=== PATIENT | female | born 1980 | race Caucasian/White ===

== ENCOUNTER 2016-12-26 19:06 | Emergency (ER) | payer MEDICAID, OTHER ==
[2016-12-26 19:07] VITALS: BMI 25.2
[2016-12-26 19:30] VITALS: BP 150/90; PULSE 90; RESP 16; TEMP 98.2; O2SAT 100
--- NOTE | 2016-12-26 21:36 | ED PDOC ---
HPI: General Adult Time Seen by Provider: 12/26/16 20:11 Chief Complaint (Nursing): Groin Pain Chief Complaint (Provider): Bilateral groin pain x 3 months History Per: Patient History/Exam Limitations: no limitations Onset/Duration Of Symptoms: Days Have you had recent travel within the past 21 days to any of the following countries: [place], [place], [place] or [place]?: No Current Symptoms Are (Timing): Still Present Additional Complaint(s): Pt reports burning in bilateral groins x 3 months. Pt states she feels like it is both the skin and deeper. Pt denies vaginal discharge. Denies fever/chills. Denies trauma. Pt states has no N/V/D. PT reports being a runner. PT states she was seen by [facility] (Dr. Moreland) when it first began for yearly check -up and pap smear. Pt states all her results were negative. Pt states she than saw Dr. James who also did a pevlic exam and states everything on exam was normal and maybe it was a contact dermatitis. PT denies change in lotion, detergent, etc and states she does not have a rash. PT states she returned to Dr. Moreland and and US was completed which showed a uterine polyp. Pt states she was given a 7 days course of flagyl which she completed today. Pt states she has no change in symptoms. Past Medical History Reviewed: Historical Data, Nursing Documentation, Vital Signs Vital Signs: Last Vital Signs Temp 98.2 F 12/26/16 19:27 Pulse 90 12/26/16 19:27 Resp 16 12/26/16 19:27 BP 150/90 12/26/16 19:27 Pulse Ox 100 12/26/16 19:27 - Medical History PMH: Gastritis, HTN Denies: Depression, Chronic Kidney Disease - Surgical History Surgical History: No Surg Hx - Family History Family History: States: No Known Family Hx - Living Arrangements Living Arrangements: Other (Significant other away for ) - Social History Current smoker - smoking cessation education provided: No Alcohol: None Drugs: Denies - Home Medications Home Medications: Ambulatory Orders Medication Instructions Recorded Azithromycin [Zithromax] 250 mg PO DAILY #4 cap 05/06/14 Pantoprazole [Protonix] 40 mg PO DAILY #14 ect 05/06/14 Tramadol HCl [Ultram] 50 mg PO QID #12 tab 05/06/14 Sucralfate [Carafate] 1 gm PO DAILY #20 tablet 04/09/16 Omeprazole 40 mg PO DAILY #20 capsule. 04/10/16 traMADol [Ultram] 50 mg PO Q6H PRN #20 tab 12/26/16 - Allergies Allergies/Adverse Reactions: Allergies Allergy/AdvReac Type Severity Reaction Status Date / Time No Known Allergies Allergy Verified 10/06/11 18:52 Review of Systems ROS Statement: Except As Marked, All Systems Reviewed And Found Negative Constitutional: Negative for: Fever, Chills Cardiovascular: Negative for: Chest Pain Respiratory: Negative for: Cough Skin: Positive for: Other (Burning ) Physical Exam - Reviewed Nursing Documentation Reviewed: Yes Vital Signs Reviewed: Yes - Physical Exam Appears: Positive for: Well, Non-toxic, No Acute Distress Head Exam: Positive for: ATRAUMATIC, NORMAL INSPECTION, NORMOCEPHALIC Skin: Positive for: Normal Color (No rash on the groin or external genitals ), Warm Eye Exam: Positive for: Normal appearance ENT: Positive for: Normal ENT Inspection Neck: Positive for: Normal, Painless ROM Cardiovascular/Chest: Positive for: Regular Rate, Rhythm Respiratory: Positive for: Normal Breath Sounds. Negative for: Accessory Muscle Use, Respiratory Distress Back: Positive for: Normal Inspection Extremity: Positive for: Normal ROM. Negative for: Tenderness Neurologic/Psych: Positive for: Alert, Oriented - ECG O2 Sat by Pulse Oximetry: 100 Medical Decision Making Medical Decision Making: Pelvic x-ray normal. Urine preg (-) and urine normal. Disposition - Clinical Impression Clinical Impression: Bilateral groin pain - Patient ED Disposition Is Patient to be Admitted: No Counseled Patient/Family Regarding: Diagnosis, Need For Followup, Rx Given - Disposition Referrals: [facility] [Outside] [facility] [Outside] Disposition: Routine/Home Disposition Time: 21:31 Condition: GOOD Prescriptions: traMADol [Ultram] 50 mg PO Q6H PRN #20 tab PRN Reason: Pain Instructions: Pelvic Pain in Women (ED) Forms: [employer] ([place])
--- NOTE | 2016-12-27 11:59 | RAD ---
PROCEDURE: Radiographs of the pelvis. HISTORY: pelvic pain, bilateral groin area COMPARISON: None. FINDINGS: BONES: Pelvic Bones: Unremarkable. Hips: Grossly unremarkable. JOINTS: Sacroiliac Joints: Unremarkable. Pubic Symphysis: Unremarkable. OTHER FINDINGS: None. IMPRESSION: Unremarkable radiographs of the pelvis.
== END 2016-12-26 21:43 | disposition home or self-care (01) ==
LOC: H.ER 19:06
DX: R10.2 Pelvic and perineal pain (principal); N84.0 Polyp of corpus uteri; I10 Essential (primary) hypertension

== ENCOUNTER 2017-05-06 06:27 | Day surgery (SDC) | payer OTHER ==
[2017-05-02 11:58] VITALS: BMI 25.0
[2017-05-06 07:19] VITALS: RESP 18
[2017-05-06] MEDS ORDERED: Propofol 10 mg/ml Inj (20 ML) ONE (07:49)
[2017-05-06] MEDS ORDERED: Midazolam 2 MG/2 ML VIAL ONE (07:49)
--- NOTE | 2017-05-06 08:11 | CP.PCM.HP ---
History of Present Illness - History of Present Illness History of Present Illness: 36yo female with endometrial polyp diagnosed by pelvic ultrasound. Discussed options including expectant management and surgical treatment. Pt opting for surgical treatment. Discussed with patient the R/B/A of D&C, hysteroscopy, polypectomy. All patient questions answered. Pt consented for procedure. Present on Admission - Present on Admission Any Indicators Present on Admission: No History of DVT/PE: No History of Uncontrolled Diabetes: No Urinary Catheter: No Decubitus Ulcer Present: No Past Patient History - Infectious Disease Hx of Infectious Diseases: None - Past Medical History & Family History Past Medical History?: Yes - Past Social History Smoking Status: Former Smoker - CARDIAC Hx Cardiac Disorders: No - PULMONARY Hx Respiratory Disorders: No - NEUROLOGICAL Hx Neurological Disorder: No - HEENT Hx HEENT Problems: No - RENAL Hx Chronic Kidney Disease: No - ENDOCRINE/METABOLIC Hx Endocrine Disorders: No - HEMATOLOGICAL/ONCOLOGICAL Hx Blood Disorders: No - INTEGUMENTARY Hx Dermatological Problems: No - MUSCULOSKELETAL/RHEUMATOLOGICAL Hx Musculoskeletal Disorders: No Hx Falls: No - GASTROINTESTINAL Hx Gastrointestinal Disorders: No Hx Gastritis: Yes Other/Comment: Lactose Intolerance. polyp. H. Pylori - GENITOURINARY/GYNECOLOGICAL Hx Genitourinary Disorders: No Other/Comment: Hx of Ovarian Cyst. - PSYCHIATRIC Hx Psychophysiologic Disorder: Yes Hx Anxiety: Yes Hx Depression: No Hx Emotional Abuse: No Hx Physical Abuse: No Hx Substance Use: No - SURGICAL HISTORY Hx Surgeries: Yes Hx Musculoskeletal Surgery: Yes (BONE SPUR LEFT FOOT) Other/Comment: LAPAROSCOPY FOR RIGHT OVARIAN CSTECTOMY - ANESTHESIA Hx Anesthesia: Yes Hx Anesthesia Reactions: No Hx Malignant Hyperthermia: No Has any member of the family had a problem w/ anesthesia?: No Meds Allergies/Adverse Reactions: Allergies Allergy/AdvReac Type Severity Reaction Status Date / Time No Known Allergies Allergy Verified 05/06/17 06:37 Physical Exam - Constitutional Appears: Well, No Acute Distress - Head Exam Head Exam: ATRAUMATIC - Eye Exam Eye Exam: Normal appearance - ENT Exam ENT Exam: Mucous Membranes Moist - Neck Exam Neck exam: Positive for: Normal Inspection - Respiratory Exam Respiratory Exam: Clear to Auscultation Bilateral, NORMAL BREATHING PATTERN - Cardiovascular Exam Cardiovascular Exam: REGULAR RHYTHM - GI/Abdominal Exam GI & Abdominal Exam: Soft. absent: Distended, Tenderness Results - Vital Signs Recent Vital Signs: Last Vital Signs Temp 98.3 F 05/06/17 07:18 Pulse 86 05/06/17 07:21 Resp 18 05/06/17 07:18 BP 125/95 H 05/06/17 07:18 Pulse Ox 95 05/06/17 07:18 - Imaging and Cardiology US - abdomen Status: Report reviewed by me Assessment & Plan - Assessment and Plan (Free Text) Assessment: Endometrial polyp Plan: Hysteroscopy, polypectomy, D&C - Date & Time Date: 05/06/17 Time: 08:12
[2017-05-06] MEDS ORDERED: Oxytocin 10 Units/ml Inj ONE (08:16)
[2017-05-06] MEDS ORDERED: Ferric Subsulfate Sol(60 mL) ONE (08:16)
[2017-05-06] MEDS ORDERED: ceFAZolin IV 1 gm in Dextrose 0 GM/0 ML BAG IVPB ONE (08:16)
[2017-05-06] MEDS ORDERED: Lactated Ringer's 1,000 ML IV ONE (08:20)
[2017-05-06] MEDS ORDERED: Lactated Ringer's 1,000 ML IV SCH ×2 (09:00→09:15)
--- NOTE | 2017-05-06 09:00 | PCM.SURG1 ---
Surgeon's Initial Post Op Note - Surgeon's Notes Surgeon: Erika Ict Account Manager: N/A Type of Anesthesia: General LMA Anesthesia Administered By: Andry Pre-Operative Diagnosis: Endometrial Polyp Operative Findings: Multiple small endometrial polyps. Otherwise normal appearing pelvic anatomy. Post-Operative Diagnosis: Same Operation Performed: Hysteroscopy, Polypectomy, D&C Specimen/Specimens Removed: Endometrial polyps with endometrium Estimated Blood Loss: EBL {In ML}: 50 Blood Products Given: N/A Drains Used: No Drains Post-Op Condition: Good Date of Surgery/Procedure: 05/06/17 Time of Surgery/Procedure: 09:00
[2017-05-06] MEDS ORDERED: Oxycodone/Acetaminophen 5/325 mg Tab PO PRN (09:02)
--- NOTE | 2017-05-06 09:02 | CP.PCM.DIS ---
Provider - Provider Attending physician: Deni James MD Primary care physician: Luís Grider MD Time Spent in preparation of Discharge (in minutes): 15 Diagnosis - Discharge Diagnosis (1) Endometrial polyp Status: Acute Hospital Course - Date & Time of H&P Date of H&P: 05/06/17 Time of H&P: 08:00 Discharge Exam - Eye Exam Eye Exam: Normal appearance - ENT Exam ENT Exam: Mucous Membranes Moist - Respiratory Exam Respiratory Exam: NORMAL BREATHING PATTERN, UNREMARKABLE - Cardiovascular Exam Cardiovascular Exam: REGULAR RHYTHM - GI/Abdominal Exam GI & Abdominal Exam: Soft. absent: Distended, Tenderness Discharge Plan - Follow Up Plan Condition: GOOD Disposition: HOME/ ROUTINE Referrals: Luís Grider MD [Primary Care Provider] -
--- NOTE | 2017-05-06 12:14 | OP ---
PROCEDURE DATE: 05/06/2017 PREOPERATIVE DIAGNOSIS: Endometrial polyp. POSTOPERATIVE DIAGNOSIS: Endometrial polyp. PROCEDURES: Hysteroscopy, polypectomy, dilation and curettage. OPERATIVE FINDINGS: Multiple small endometrial polyps visualized within the endometrial cavity. Otherwise, normal appearing anatomy. SURGEON: Deni James MD TYPE OF ANESTHESIA: General. ANESTHESIA ADMINISTERED BY: Dr. Wilde. COMPLICATIONS: None. ESTIMATED BLOOD LOSS: Minimal. IV FLUID INTAKE: 500 mL lactated Ringer's. DESCRIPTION OF PROCEDURE: The patient was taken to the operating room where general anesthesia was found to be adequate. The patient was prepped and draped in normal sterile fashion in the dorsal lithotomy position. A weighted speculum was placed at the posterior aspect of the vagina. A Hill retractor was placed at the anterior surface of the vagina. The cervix was grasped with a single tooth tenaculum at the anterior surface. The cervix was dilated with Hanson dilators to a size of 20-Tamazight. The hysteroscope was placed through the cervix into the uterine cavity and the above findings noted. A MyoSure device was placed through the cervix within the hysteroscope in to the endometrial cavity. Under direct visualization, multiple uterine polyps were removed using MyoSure device. After removal of polyps, all sites were found to be hemostatic. The hysteroscope was removed from the uterus. The tenaculum was removed under direct visualization. Both the tenaculum site and cervical os was found to be hemostatic. The patient tolerated the procedure well. All sponge count, lap count and needle counts were correct x2. There were no complications. The patient was taken to the recovery room awake and in stable condition. Deni James MD
[2017-05-06 13:04] VITALS: O2SAT 97
[2017-05-06 13:10] VITALS: BP 136/88; PULSE 63; TEMP 98.5
== END 2017-05-06 12:30 | disposition home or self-care (01) ==
LOC: H.OPSURG 06:27
PROVIDERS: ATTEND Obstetrics & Gynecology
DX: N84.0 Polyp of corpus uteri (principal); Z87.891 Personal history of nicotine dependence
CPT/HCPCS: 58558; 88305; J1885; J2001; J2250; J2704; J3010; J7120